=== PATIENT | male | born 1930 | race Caucasian/White ===

== ENCOUNTER 2016-12-18 14:31 | Emergency (ER) | payer MEDICARE, BC ==
[~2016-12-18] VITALS: Ht 180.3 cm; Wt 83.9 kg
--- NOTE | ~2016-12-18 | CR113 ---
[facility]. [facility] A Service of [facility] & [facility] RADIOLOGY TEXT RESULTS PATIENT: PARIS CULP LOCATION: CFTX : 31 UNIT #: [id number] AGE: [address]: BRIANNA WHALEN SEX: M ORDER DR: [id number] [facility] [address] [place], [place] [address] [id number] E MR#: [id number] Acc #: [id number] NAME: PARIS CULP : 1930 SEX: M STUDY DATE/TIME: 12/18/2016 17:13 UNIT: [facility] ROOM: STUDY DESCRIPTION: CR Finger 2 View 4Th Rt Attending Physician: Brianna Whalen A.P.R.N. Ordering Physician: Brianna Whalen A.P.R.N. Primary Care Physician: Redd Serrano M.D. MEDICAL IMAGING REPORT This report is preliminary unless electronic signature is present EXAM Right finger series 12/18/2016 HISTORY Reduction of joint. Additional history of mild pain. 1 hour. FINDINGS AP and lateral radiographs of the right fourth digit are presented. Comparison from earlier on same date. Status post reduction of previously dislocated right fourth digit proximal interphalangeal joint. Joint relationship now appears normal. Along the palmar aspect of the joint there is a well corticated 3-5 mm calcification with an appearance most suggestive of a sesamoid bone. I see no evidence of acute fracture. No new bony abnormalities. Generalized narrowing of the visualized interphalangeal joint spaces. Generalized soft tissue swelling proximal half of the fourth digit but no soft tissue defect. Dictated by... Lane Arita M.D. THIS IS AN ELECTRONICALLY VERIFIED REPORT Lane Arita M.D. at 12/19/2016 6:25 PM BOLA/krysta TD: 12/19/2016 06:52 JOB #: [id number] MEDICAL IMAGING REPORT Page 1 of 1 COPY
--- NOTE | ~2016-12-18 | CR113 ---
[facility] A Service of [facility] & [facility] RADIOLOGY TEXT RESULTS PATIENT: PARIS CULP LOCATION: CFTX : 31 UNIT #: [id number] AGE: [address]: BRIANNA WHALEN SEX: M ORDER DR: [id number] [facility] [address] [place], [place] [address] [id number] E MR#: [id number] Acc #: [id number] NAME: PARIS CULP : 1930 SEX: M STUDY DATE/TIME: 12/18/2016 15:50 UNIT: [facility] ROOM: STUDY DESCRIPTION: CR Finger 2 View 4Th Rt Attending Physician: Brianna Whalen A.P.R.N. Ordering Physician: Brianna Whalen A.P.R.N. Primary Care Physician: Redd Serrano M.D. MEDICAL IMAGING REPORT This report is preliminary unless electronic signature is present EXAM Right fourth digit series HISTORY Right fourth digit pain/deformity today, fell down in grass. FINDINGS AP, lateral and oblique radiographs of the right fourth digit are presented. Right fourth digit proximal interphalangeal joint dislocation. The middle phalanx is displaced in ulnar and dorsal direction. No associated fracture but reassessment after relocation of the joint is recommended. No other acute-appearing bony abnormality. There is no soft tissue defect. Dictated by... Lane Arita M.D. THIS IS AN ELECTRONICALLY VERIFIED REPORT Lane Arita M.D. at 12/19/2016 6:25 PM BOLA/yusra TD: 12/19/2016 02:23 JOB #: [id number] MEDICAL IMAGING REPORT Page 1 of 1 COPY
== END 2016-12-18 17:47 | disposition home or self-care (01) ==
LOC: CFTX 14:31 → CED 14:31 → CFTX 15:45
DX: S63.284A Dislocation of proximal interphalangeal joint of right ring finger, initial encounter (principal); W18.30XA Fall on same level, unspecified, initial encounter; Y92.009 Unspecified place in unspecified non-institutional (private) residence as the place of occurrence of the external cause
CPT/HCPCS: 26770; 29130; 73140; 99283